=== PATIENT | female | born 1940 | race Caucasian/White ===

== ENCOUNTER 2016-11-16 20:19 | Emergency (ER) | payer OTHER ==
[~2016-11-16] VITALS: Ht 157.5 cm; Wt 85.0 kg
[~2016-11-16 20:19] MED LIST: ALPR.25 PO; CLON.1 PO; FERR325T PO; HYDR-3516 PO; LOSA100T3 PO; LOVA10TA PO; METF500 PO; METO100T9 PO
[2016-11-16 20:21] VITALS: BP 224/94; PULSE 66; RESP 16; TEMP 98.1; O2SAT 98
--- NOTE | 2016-11-16 22:06 | PD ---
HPI Chief Complaint: Epic Cupid Analyst Problem Time Seen by Provider: 22:27 Travel History International Travel<30 days: No Contact w/Intl Traveler<30days: No Traveled to known affect area: No History of Present Illness HPI 76-year-old female came to the emergency room since her Mediport Palm which is delivering her chemotherapy drug started to beep [place] the [place]. She otherwise feels okay. In triage she was noticed to have elevated blood pressure. Vision does have history of hypertension. No history of headache, chest pain or blurred vision. She is otherwise feeling her usual self. [facility] Past Medical History Narrative Medical Rest of her past medical history as reviewed from the nursing note. Anxiety: Yes Cancer: Yes (colon) Cardiovascular Problems: Yes High Cholesterol: Yes Diabetes: Yes Diminished Hearing: No Endocrine: Yes Genitourinary: No Hypertension: Yes Immune Disorder: No Musculoskeletal: No Neurologic: No Reproductive: No Respiratory: No Immunizations Current: No : 4 Para: 3 Miscarriage: 1 Ovarian Cysts: Yes (HAD CYST REMOVED FROM RIGHT OVARY SEVERAL YEARS AGO) Past Surgical History Abdominal Surgery: Yes (gallbladder, colon resection) AICD: No Appendectomy: Yes Section: Yes Gynecologic Surgery: Yes (c section) Hysterectomy: Yes Joint Replacement: No Pacemaker: No Tonsillectomy: Yes Social History Alcohol Use: No Tobacco Use: No Substance Use: No Allergies-Medications (Allergen,Severity, Reaction): Coded Allergies: Penicillin (Verified Allergy, Severe, RASH, 11/16/16) Comments List of allergies reviewed from the nursing note. Reported Meds & Prescriptions Reported Meds & Active Scripts Active Reported Lovastatin 10 Mg Tab 10 Mg PO DAILY Losartan-Hydrochlorothiazide 100-12.5 Mg Tab 1 Tab PO DAILY Metoprolol Succinate ER 24 HR (Metoprolol Succinate) 100 Mg Tab 100 Mg PO DAILY Glucophage (Metformin HCl) 500 Mg Tab 500 Mg PO DAILY With a meal Catapres (Clonidine) 0.1 Mg Tab 0.1 Mg PO BID Xanax (Alprazolam) 0.25 Mg Tab 0.25 Mg PO DAILY PRN Narrative Medication List of her home medications reviewed from the nursing note. Review of Systems Except as stated in HPI: all other systems reviewed are Neg Physical Exam Narrative GENERAL: Awake, alert, no obvious distress SKIN: Warm and dry. MediPort on the right side of her chest. There is a IV tubing that's attached to a Palm that is attached to a pouch of medication. The pump was beeping constantly. HEAD: Atraumatic. Normocephalic. EYES: Pupils equal and round. No scleral icterus. No injection or drainage. ENT: No nasal bleeding or discharge. Mucous membranes pink and moist. NECK: Trachea midline. No JVD. CARDIOVASCULAR: Regular rate and rhythm. No murmur appreciated. RESPIRATORY: No accessory muscle use. Clear to auscultation. Breath sounds equal bilaterally. GASTROINTESTINAL: Abdomen soft, non-tender, nondistended. Hepatic and splenic margins not palpable. MUSCULOSKELETAL: No obvious deformities. No clubbing. No cyanosis. No edema. NEUROLOGICAL: Awake and alert. No obvious cranial nerve deficits. Motor grossly within normal limits. Normal speech. PSYCHIATRIC: Appropriate mood and affect; insight and judgment normal. Data Data Last Documented VS Vital Signs Date Time Temp Pulse Resp B/P Pulse Ox O2 Delivery O2 Flow Rate FiO2 11/16/16 22:07 72 18 198/95 100 Room Air 11/16/16 20:21 98.1 Orders Clonidine (Catapres) (11/16/16 22:30) [facility] Medical Decision Making Medical Screen Exam Complete: Yes Emergency Medical Condition: Yes Medical Record Reviewed: Yes Differential Diagnosis Pump malfunction Narrative Course 11:03 PM I turned the pump off and started it back on again. The nurse flushed the MediPort and now the medication seems to be delivering okay and the pump is not beeping anymore. Patient was given 0.1 mg of clonidine for her hypertension. I'll discharge her home. Procedures EKG Prior to Arrival: No Diagnosis Primary Impression: Mediport pump malfunction Additional Impression: Essential hypertension Referrals: Primary Care Physician 1 day Additional Instructions: Please follow-up with your oncologist by at least doing a telephone call tomorrow to let them know about this issue. Take your medications as prescribed. Med/Other Pt SpecificInfo: No Change to Meds Disposition: 01 DISCHARGE HOME Condition: Stable Lyndsay Collier MD Nov 16, 2016 22:06
[2016-11-16 22:07] VITALS: BP 198/95; PULSE 72; RESP 18; O2SAT 100
[2016-11-16] MEDS ORDERED: cloNIDine HCL 0.1 MG TAB PO ONE (22:30)
== END 2016-11-16 23:21 | disposition home or self-care (01) ==
LOC: NEPB 20:19 → NEPE 23:21
DX: T85.615A Breakdown (mechanical) of other nervous system device, implant or graft, initial encounter (principal); I10 Essential (primary) hypertension; Y82.8 Other medical devices associated with adverse incidents
CPT/HCPCS: 99283

== ENCOUNTER 2017-09-14 06:38 | Emergency (ER) | payer OTHER ==
[~2017-09-14] VITALS: Ht 160 cm; Wt 85.0 kg
[~2017-09-14 06:38] MED LIST changes: -FERR325T PO; -HYDR-3516 PO; -METO100T9 PO; +METO1TAB43 PO
[2017-09-14 06:59] VITALS: BP 154/66; PULSE 76; RESP 16; TEMP 98.5; O2SAT 96
[2017-09-14] MEDS ORDERED: AMLO10TA2 PO (07:10)
[2017-09-14] MEDS ORDERED: LEVO25TA4 PO (07:10)
--- NOTE | 2017-09-14 07:21 | PD ---
HPI Chief Complaint: Hypertension Time Seen by Provider: 07:03 Travel History International Travel<30 days: No Contact w/Intl Traveler<30days: No Traveled to known affect area: No History of Present Illness HPI The patient is a 77-year-old female who presents to the emergency department for elevated blood pressure. The patient was recently seen by her primary physician, Dr. Painter, who changed some of her blood pressure medications. The patient was taken off of clonidine twice a day and placed on Norvasc with her losartan, hydrochlorothiazide, and metoprolol. The patient was doing well until last several days when she noted her blood pressure was elevated. She occasionally has some facial flushing and redness to the ears. She denies any lightheadedness, dizziness, headache, chest pain, shortness breath, nausea, vomiting, or focal deficits. The patient states the first time she took her Norvasc 10 mg she felt "off", and started cutting her Norvasc tablets in half, taking them twice a day. The patient states she had blood work 2 weeks ago which was unremarkable except for possible thyroid disorder which is undergoing investigation. The patient denies any symptoms this morning. The patient's symptoms are mild to moderate, possibly exacerbated by underlying high blood pressure, and there are no currently bleeding factors. PFSH Past Medical History Hx Anticoagulant Therapy: No Anxiety: Yes Cancer: Yes (colon) Cardiovascular Problems: Yes (htn on meds) High Cholesterol: Yes Diabetes: Yes Patient Takes Glucophage: Yes (metformin) Diminished Hearing: No Endocrine: Yes Gastrointestinal Disorders: Yes (gallbladder removed) Genitourinary: No Hypertension: Yes Immune Disorder: No Musculoskeletal: No Neurologic: No Reproductive: No Respiratory: No Immunizations Current: Yes ?: Not : 4 Para: 3 Miscarriage: 1 Ovarian Cysts: Yes (HAD CYST REMOVED FROM RIGHT OVARY SEVERAL YEARS AGO) Past Surgical History Abdominal Surgery: Yes (gallbladder, colon resection) AICD: No Appendectomy: Yes Section: Yes Gynecologic Surgery: Yes (c section) Hysterectomy: Yes Joint Replacement: No Pacemaker: No Tonsillectomy: Yes Other Surgery: Yes (right chest port chemo ) Social History Alcohol Use: No Tobacco Use: No Substance Use: No Allergies-Medications (Allergen,Severity, Reaction): Coded Allergies: penicillin G (Unverified Allergy, Severe, RASH, 11/2/17) Reported Meds & Prescriptions Reported Meds & Active Scripts Active Reported Levothyroxine (Levothyroxine Sodium) 25 Mcg Tab 25 Mcg PO DAILY Amlodipine (Amlodipine Besylate) 10 Mg Tab 10 Mg PO DAILY Losartan-Hydrochlorothiazide 100-12.5 Mg Tab 1 Tab PO DAILY Metoprolol Succinate ER 24 HR (Metoprolol Succinate) 100 Mg Tab 100 Mg PO DAILY Glucophage (Metformin HCl) 500 Mg Tab 500 Mg PO DAILY With a meal Xanax (Alprazolam) 0.25 Mg Tab 0.25 Mg PO DAILY PRN Review of Systems Except as stated in HPI: all other systems reviewed are Neg General / Constitutional: No: Fever Eyes: No: Blurred Vision, Visual changes HENT: No: Headaches, Lightheadedness Cardiovascular: No: Chest Pain or Discomfort Respiratory: No: Shortness of Breath Gastrointestinal: No: Nausea, Vomiting, Abdominal Pain Musculoskeletal: Positive: Weakness Neurologic: No: Dizziness Physical Exam Narrative GENERAL: Awake, alert, nontoxic-appearing 77 year-old female who appears her stated age and is in no acute respiratory distress. SKIN: Focused skin assessment warm/dry. HEAD: Atraumatic. Normocephalic. EYES: Pupils equal and round. No scleral icterus. No injection or drainage. ENT: No nasal bleeding or discharge. Mucous membranes pink and moist. NECK: Trachea midline. No JVD. CARDIOVASCULAR: Regular rate and rhythm. Holosystolic murmur. RESPIRATORY: No accessory muscle use. Clear to auscultation. Breath sounds equal bilaterally. GASTROINTESTINAL: Abdomen soft, non-tender, nondistended. No rebound tenderness. MUSCULOSKELETAL: No obvious deformities. No clubbing. No cyanosis. No edema. NEUROLOGICAL: Awake and alert. No obvious cranial nerve deficits. Motor grossly within normal limits. Normal speech. Nonfocal. Oriented 4. Follows commands without difficulty. PSYCHIATRIC: Appropriate mood and affect; insight and judgment normal. Data Data Last Documented VS Vital Signs Date Time Temp Pulse Resp B/P (MAP) Pulse Ox O2 Delivery O2 Flow Rate FiO2 09/14/17 07:40 68 16 159/68 (98) 97 Room Air 09/14/17 06:59 98.5 MDM Medical Decision Making Medical Screen Exam Complete: Yes Emergency Medical Condition: Yes Medical Record Reviewed: Yes Differential Diagnosis Differential diagnosis includes hypertension, hypertensive urgency, hypertensive emergency, acute renal failure, hyponatremia, anxiety, somatization. Narrative Course The patient states she normal blood work shows 2 weeks ago. Therefore, no initial IV or laboratory evaluation was obtained. The patient's initial blood pressure was 150s/70s,. Upon reevaluation was 180/80s, however, patient had her arm bent at 90. Therefore, the blood pressure was reevaluated. She is currently asymptomatic. The patient's blood pressure was reevaluated, was 159/ 68. The patient is asymptomatic. She is advised to keep a blood pressure log and follow-up with her primary physician. Return if symptoms worsen or progress. Diagnosis Primary Impression: Essential hypertension Patient Instructions: General Instructions Additional Instructions: Keep a blood pressure log. Follow-up with her primary physician. Return if symptoms worsen or progress. Med/Other Pt SpecificInfo: No Change to Meds Disposition: 01 DISCHARGE HOME Condition: Stable William Martinez MD Sep 14, 2017 07:21
[2017-09-14 07:40] VITALS: BP 159/68; PULSE 68; RESP 16; O2SAT 97
== END 2017-09-14 08:31 | disposition home or self-care (01) ==
LOC: PHED 06:38
DX: I10 Essential (primary) hypertension (principal); E11.9 Type 2 diabetes mellitus without complications; Z79.84 Long term (current) use of oral hypoglycemic drugs
CPT/HCPCS: 99281

== ENCOUNTER 2018-02-20 20:41 | Emergency (ER) | payer SELFPAY ==
[~2018-02-20] VITALS: Ht 160 cm; Wt 88.3 kg
[~2018-02-20 20:41] MED LIST changes: +AMLO10TA2 PO; -CLON.1 PO; +LEVO25TA4 PO; -LOVA10TA PO
[2018-02-20 20:48] VITALS: BP 196/95; PULSE 116; RESP 18; TEMP 98; O2SAT 97
[2018-02-20 22:58] VITALS: BP 167/76; PULSE 109; RESP 18; O2SAT 96
[2018-02-20] MEDS ORDERED: METF500T PO (22:58)
[2018-02-20] MEDS ORDERED: LEVO50TA4 PO (22:58)
--- NOTE | 2018-02-20 23:11 | PD ---
HPI Chief Complaint: Hypertension Time Seen by Provider: 23:06 Travel History International Travel<30 days: No Contact w/Intl Traveler<30days: No Traveled to known affect area: No History of Present Illness HPI The patient is a 76-year-old female with a history of anxiety and hypertension who noted her blood pressure was high at home. She got 174/121 at home. She was anxious. She did not take her metoprolol. She noticed she had a fast heart rate as well. She denies any chest pain or shortness of breath. She denies any headache or focal neurologic change. PFSH Past Medical History Hx Anticoagulant Therapy: No Anxiety: Yes Cancer: Yes (colon) Cardiovascular Problems: Yes (htn on meds) High Cholesterol: Yes Diabetes: Yes Patient Takes Glucophage: Yes (02/20/18 6pm) Diminished Hearing: No Endocrine: Yes Gastrointestinal Disorders: Yes (gallbladder removed) Genitourinary: No Hypertension: Yes Immune Disorder: No Musculoskeletal: No Neurologic: No Reproductive: No Respiratory: No Immunizations Current: Yes Thyroid Disease: Yes Influenza Vaccination: No ?: Not : 4 Para: 3 Miscarriage: 1 Ovarian Cysts: Yes (HAD CYST REMOVED FROM RIGHT OVARY SEVERAL YEARS AGO) Past Surgical History Abdominal Surgery: Yes (colon resection) AICD: No Appendectomy: Yes Section: Yes Gynecologic Surgery: Yes (c section) Hysterectomy: Yes (ovaries removed only) Joint Replacement: No Pacemaker: No Tonsillectomy: Yes Other Surgery: Yes (right chest port chemo ) Social History Alcohol Use: No Tobacco Use: No (former) Substance Use: No Allergies-Medications (Allergen,Severity, Reaction): Coded Allergies: penicillin G (Unverified Allergy, Severe, RASH, 02/20/18) Reported Meds & Prescriptions Reported Meds & Active Scripts Active Reported Levothyroxine (Levothyroxine Sodium) 50 Mcg Tab 50 Mcg PO DAILY Metformin (Metformin HCl) 500 Mg Tab 500 Mg PO BIDPC Amlodipine (Amlodipine Besylate) 10 Mg Tab 10 Mg PO DAILY Losartan-Hydrochlorothiazide 100-12.5 Mg Tab 1 Tab PO DAILY Metoprolol Succinate ER 24 HR (Metoprolol Succinate) 100 Mg Tab 100 Mg PO DAILY Xanax (Alprazolam) 0.25 Mg Tab 0.25 Mg PO DAILY PRN Review of Systems Except as stated in HPI: all other systems reviewed are Neg Physical Exam Narrative GENERAL: The patient is alert, slightly anxious, oriented 3 no apparent distress. Her blood pressure initially was 196/95 and repeat is 167 over 76. The heart rate is in the mid 90s. SKIN: Focused skin assessment warm/dry. HEAD: Atraumatic. Normocephalic. EYES: Pupils equal and round. No scleral icterus. No injection or drainage. ENT: No nasal bleeding or discharge. Mucous membranes pink and moist. NECK: Trachea midline. No JVD. CARDIOVASCULAR: Regular rate and rhythm. No murmur appreciated. RESPIRATORY: No accessory muscle use. Clear to auscultation. Breath sounds equal bilaterally. GASTROINTESTINAL: Abdomen soft, non-tender, nondistended. Hepatic and splenic margins not palpable. MUSCULOSKELETAL: No obvious deformities. No clubbing. No cyanosis. No edema. NEUROLOGICAL: Awake and alert. No obvious cranial nerve deficits. Motor grossly within normal limits. Normal speech. PSYCHIATRIC: Appropriate mood and affect; insight and judgment normal. Data Data Last Documented VS Vital Signs Date Time Temp Pulse Resp B/P (MAP) Pulse Ox O2 Delivery O2 Flow Rate FiO2 02/20/18 22:58 109 18 167/76 (106) 96 Room Air 02/20/18 20:48 98.0 MDM Medical Decision Making Medical Screen Exam Complete: Yes Emergency Medical Condition: Yes Medical Record Reviewed: Yes Differential Diagnosis Hypertension poor control, noncompliance, anxiety related blood pressure elevation Narrative Course The patient appears to have both noncompliance with respect to metoprolol and anxiety related blood pressure elevation. When she calmed down the blood pressure came down to an acceptable level for the emergency department. She is to follow-up with her primary care physician. Diagnosis Primary Impression: Elevated blood pressure reading Additional Impressions: Anxiety Noncompliance with medications Additional Instructions: Make sure you take all of your blood pressure medicines correctly. Follow-up with your primary care physician. Tonight your blood pressure was likely elevated because of the anxiety and not taking metoprolol. Med/Other Pt SpecificInfo: No Change to Meds Disposition: 01 DISCHARGE HOME Condition: Stable Kehinde Arriola MD Feb 20, 2018 23:11
[2018-02-20 23:53] VITALS: BP 133/72; PULSE 73; RESP 18; O2SAT 96
== END 2018-02-21 00:02 | disposition home or self-care (01) ==
LOC: PHED 20:41
DX: I10 Essential (primary) hypertension (principal); F41.9 Anxiety disorder, unspecified; R00.0 Tachycardia, unspecified; E78.00 Pure hypercholesterolemia, unspecified; E11.9 Type 2 diabetes mellitus without complications; Z88.0 Allergy status to penicillin; Z91.14 Patient's other noncompliance with medication regimen
CPT/HCPCS: 99282